=== PATIENT | male | born 1995 | race Two or more races ===

== ENCOUNTER 2023-11-28 12:34 | Emergency (ER) | payer BC ==
[~2023-11-28] VITALS: Ht 182.9 cm; Wt 90.7 kg
[2023-11-28 14:38] LABS: HEMATOCRIT 41.7 % (39.0-48.0); HEMOGLOBIN 14.5 g/dL (13-16.00); MEAN CELL VOLUME 86.5 fL (80.0-100.00); MEAN CORPUSCULAR HGB CONC 34.7 g/dl (32.0-36.0); PLATELET COUNT 197 K/uL (150-450); RED BLOOD COUNT 4.83 M/uL (4.00-6.00); RED CELL DISTRIBUTION WIDTH 13.3 % (11.5-14.5)
[2023-11-28 14:49] LABS: PH,URINE 7.5 (5.0-8.0); URINE APPEARANCE Clear; URINE BILIRRUBIN Negative (NEGATIVE); URINE BLOOD Negative; URINE COLOR Yellow; URINE GLUCOSE Negative (NEGATIVE); URINE LEUKOCYTE Negative; URINE NITRATE Negative; URINE PROTEIN Trace (NEGATIVE)
[2023-11-28 15:54] LABS: URINE BACTERIA 3.7 uL (0.0-1933); URINE EPITHELIAL CELLS 0.6 uL (0.0-38.8); URINE WBC 1.3 uL (0.0-23.2)
[2023-11-28] MEDS ORDERED: ZOFRAN8 MG PO (17:09)
[2023-11-28] MEDS ORDERED: PEPCID20 MG PO (17:09)
== END 2023-11-28 17:14 | disposition home or self-care (01) ==
LOC: ER 12:36
PROVIDERS: General Practice
DX: K52.89 Other specified noninfective gastroenteritis and colitis (principal); Z20.822 Contact with and (suspected) exposure to COVID-19